=== PATIENT | male | born 1970 | race Caucasian/White ===

== ENCOUNTER 2023-05-16 13:25 | Inpatient (IN) | payer MEDICAID ==
[~2023-05-16] VITALS: Ht 170.2 cm; Wt 72.6 kg
[2023-05-16] MEDS: LEVOFLOXACIN 750 MG/D5W PREMIX 150 ML IV SCH (00:56)
[2023-05-16 13:33] VITALS: BP 190/130; PULSE 113; RESP 20; TEMP 97.7; O2SAT 98
[2023-05-16 15:09] LABS: BASOPHILS % (AUTO) 1.1 % (0.0-2.0); EOSINOPHILS # (AUTO) 0.4 K/uL (0-0.4); EOSINOPHILS % (AUTO) 8.3 % (0.0-4.0); HEMATOCRIT 47.7 % (36-52); HEMOGLOBIN 16.4 g/dL (12.0-18.0); LYMPHOCYTES # (AUTO) 1.4 K/uL (2.0-11.5); LYMPHOCYTES % (AUTO) 33.3 % (20.5-51.1); MEAN CORPUSCULAR HEMOGLOBIN 33 pg (27-31); MEAN CORPUSCULAR HGB CONC 35 g/dL (33-37); MEAN CORPUSCULAR VOLUME 95.2 fL (80-94); MONOCYTES # (AUTO) 0.3 K/uL (0.8-1.0); MONOCYTES % (AUTO) 7.8 % (1.7-9.3); NEUTROPHILS # (AUTO) 2.1 K/uL (1.8-7.7); NEUTROPHILS % (AUTO) 49.5 % (42.2-75.2); PLATELET COUNT (AUTO) 60 K/uL (140-450); RED BLOOD CELL COUNT(AUTO) 5.01 MIL/uL (4.20-6.10); RED CELL DISTRIBUTION WIDTH 14.4 % (11.6-13.7); WHITE BLOOD COUNT (AUTO) 4.3 K/uL (4.8-10.8)
[2023-05-16 15:17] LABS: ANION GAP 12.4 (8-16); CALCIUM 8.2 mg/dL (8.5-10.1); CARBON DIOXIDE 30.7 mmol/L (21-32); CREATININE 0.8 mg/dL (0.6-1.3); POTASSIUM 4.1 mmol/L (3.5-5.1)
[2023-05-16] MEDS: HYDROmorphone PFS 2 MG/ML SYR IVP ONE ×2 (15:19→18:14)
[2023-05-16 15:20] LABS: INR 1.06 (0.8-1.2); PARTIAL THROMBOPLASTIN TIME 24.1 secs (22-35.6); PROTHROMBIN TIME 11.1 secs (10.8-13.4)
[2023-05-16] MEDS: NACL 0.9% 1,000 ML IV SCH ×2 (15:21→22:00)
[2023-05-16 15:27] LABS: ALANINE AMINOTRANSFERASE 85 U/L (12-78); ALBUMIN 3.4 g/dL (3.4-5.0); ALKALINE PHOSPHATASE 193 U/L (50-136); ASPARTATE AMINOTRANSFERASE 143 U/L (15-37); BILIRUBIN,DIRECT 0.2 mg/dL (0.0-0.3); CREATINE KINASE, TOTAL 119 U/L (39-308); TOTAL BILIRUBIN 0.7 mg/dL (0.0-1.0); TOTAL PROTEIN, SERUM 7.1 g/dL (6.4-8.2)
[2023-05-16 15:30] LABS: LACTIC ACID 2.6 mmol/L (0.4-2.0)
[2023-05-16 16:07] LABS: APPEARANCE,URINE CLEAR (CLEAR); BILIRUBIN,URINE NEGATIVE (NEGATIVE); BLOOD, URINE NEGATIVE (NEGATIVE); COLOR,URINE YELLOW (YELLOW); LEUKOCYTE ESTERASE ,URINE NEGATIVE (NEGATIVE); NITRITE, URINE NEGATIVE (NEGATIVE); PROTEIN,URINE NEGATIVE (NEGATIVE); UGLUCOSE 1+ (NEGATIVE); UROBILINOGEN,URINE 0.2 EU/dL (0.2 - 1)
[2023-05-16] MEDS ORDERED: CRUSHER, PILL MC ONE (17:49)
[2023-05-16] MEDS: PROPRANOLOL 20 MG TAB PO ONE (17:50)
[2023-05-16] MEDS: NACL 0.9% 1,000 ML IV ONE (18:22)
[2023-05-16] MEDS ORDERED: metroNIDAZOLE 500 MG/NS PREMIX 100 ML IV ONE (19:45)
[2023-05-16] MEDS ORDERED: ACETAMINOPHEN 325 MG TAB PO PRN (20:05)
[2023-05-16] MEDS ORDERED: HYDROcodone/APAP 5/325 MG 1 TAB TAB PO PRN (20:05)
[2023-05-16] MEDS ORDERED: metroNIDAZOLE 500 MG/NS PREMIX 0 ML IV ONE (22:17)
[2023-05-16] MEDS ORDERED: cefTRIAXone 1,000 MG VIAL ONE (22:17)
[2023-05-16] MEDS: HYDROmorphone 1 MG/ML AMP IVP PRN (22:57)
[2023-05-17] VITALS (8 sets, daily range): BP systolic 121–173; BP diastolic 70–106; PULSE 74–120; RESP 18; TEMP 96.8–99; O2SAT 95–100
[2023-05-17] MEDS: PROPRANOLOL 20 MG TAB PO SCH (02:08)
[2023-05-17] MEDS: ONDANSETRON 4 MG/2 ML VIAL IVP PRN ×2 (03:10→12:30)
[2023-05-17] MEDS: hydrALAZINE 20 MG/ML VIAL IVP PRN (03:23)
[2023-05-17 06:53] LABS: BASOPHILS % (AUTO) 0.5 % (0.0-2.0); EOSINOPHILS # (AUTO) 0.1 K/uL (0-0.4); EOSINOPHILS % (AUTO) 1.1 % (0.0-4.0); HEMOGLOBIN 15.5 g/dL (12.0-18.0); LYMPHOCYTES # (AUTO) 0.5 K/uL (2.0-11.5); MEAN CORPUSCULAR HEMOGLOBIN 33 pg (27-31); MEAN CORPUSCULAR HGB CONC 35 g/dL (33-37); MEAN CORPUSCULAR VOLUME 95.4 fL (80-94); MONOCYTES # (AUTO) 0.3 K/uL (0.8-1.0); MONOCYTES % (AUTO) 4.3 % (1.7-9.3); NEUTROPHILS # (AUTO) 6.9 K/uL (1.8-7.7); NEUTROPHILS % (AUTO) 88.1 % (42.2-75.2); PLATELET COUNT (AUTO) 70 K/uL (140-450); RED BLOOD CELL COUNT(AUTO) 4.72 MIL/uL (4.20-6.10); RED CELL DISTRIBUTION WIDTH 14.5 % (11.6-13.7); WHITE BLOOD COUNT (AUTO) 7.8 K/uL (4.8-10.8)
[2023-05-17 07:32] LABS: ALBUMIN 3.2 g/dL (3.4-5.0); ANION GAP 15.8 (8-16); CALCIUM 8.1 mg/dL (8.5-10.1); CARBON DIOXIDE 25.4 mmol/L (21-32); CREATININE 0.6 mg/dL (0.6-1.3); POTASSIUM 4.2 mmol/L (3.5-5.1); TOTAL PROTEIN, SERUM 6.7 g/dL (6.4-8.2)
[2023-05-17] MEDS: DEXT 5% /NACL 0.9% 1,000 ML IV SCH (08:52)
[2023-05-17] MEDS: LORazepam 1 MG TAB PO PRN (08:52)
[2023-05-17] MEDS: PANTOPRAZOLE 40 MG INJ VIAL IVP ONE (08:52)
[2023-05-17] MEDS: DOCUSATE SODIUM 100 MG GELCAP PO SCH (09:00)
[2023-05-17] MEDS: LORazepam 2 MG/ML VIAL IVP PRN (10:05)
[2023-05-17] MEDS: diphenhydrAMINE 50 MG/ML VIAL ONE (11:47)
[2023-05-17] MEDS: fentaNYL citrate 0.05 MG/ML VIAL ONE (11:48)
[2023-05-17] MEDS: MIDAZOLAM 5 MG/5 ML VIAL ONE (11:48)
[2023-05-17] MEDS: fentaNYL citrate 0.05 MG/ML VIAL IVP ONE (12:26)
[2023-05-17] MEDS: MIDAZOLAM 2 MG/2 ML VIAL IV ONE (12:26)
[2023-05-17] MEDS: ZOLPIDEM 5 MG TAB PO PRN (22:53)
[2023-05-18] VITALS: BP 188/120; PULSE 100; RESP 18; TEMP 99; O2SAT 95
[2023-05-18 06:47] LABS: BASOPHILS % (AUTO) 0.1 % (0.0-2.0); EOSINOPHILS % (AUTO) 0.7 % (0.0-4.0); HEMOGLOBIN 15.1 g/dL (12.0-18.0); LYMPHOCYTES # (AUTO) 0.6 K/uL (2.0-11.5); LYMPHOCYTES % (AUTO) 14.4 % (20.5-51.1); MEAN CORPUSCULAR HEMOGLOBIN 33 pg (27-31); MEAN CORPUSCULAR HGB CONC 34 g/dL (33-37); MEAN CORPUSCULAR VOLUME 97.5 fL (80-94); MONOCYTES # (AUTO) 0.4 K/uL (0.8-1.0); MONOCYTES % (AUTO) 10.2 % (1.7-9.3); NEUTROPHILS # (AUTO) 3.2 K/uL (1.8-7.7); NEUTROPHILS % (AUTO) 74.6 % (42.2-75.2); PLATELET COUNT (AUTO) 37 K/uL (140-450); RED BLOOD CELL COUNT(AUTO) 4.62 MIL/uL (4.20-6.10); RED CELL DISTRIBUTION WIDTH 14.5 % (11.6-13.7); WHITE BLOOD COUNT (AUTO) 4.3 K/uL (4.8-10.8)
[2023-05-18 07:19] LABS: ANION GAP 9.2 (8-16); CALCIUM 8.4 mg/dL (8.5-10.1); CARBON DIOXIDE 31.4 mmol/L (21-32); CREATININE 0.9 mg/dL (0.6-1.3); POTASSIUM 3.6 mmol/L (3.5-5.1); TOTAL BILIRUBIN 1.1 mg/dL (0.0-1.0); TOTAL PROTEIN, SERUM 6.3 g/dL (6.4-8.2)
[2023-05-18] MEDS ORDERED: POLYVINYL ALCOHOL 1.4% OP 15 ML SOL OP PRN (07:45)
[2023-05-18 08:00] VITALS: BP 114/69; PULSE 84; RESP 18; TEMP 98.2; O2SAT 97
[2023-05-18] MEDS ORDERED: [UNRECOGNIZED DRUG - OTHER] OP PRN (08:40)
[2023-05-18 16:00] VITALS: BP 140/72; PULSE 98; RESP 18; TEMP 98.1; O2SAT 95
[2023-05-18 20:00] VITALS: PULSE 89; RESP 18; TEMP 98.2; O2SAT 98
[2023-05-19] VITALS: BP 141/76; PULSE 119; RESP 18; TEMP 99.4; O2SAT 98
[2023-05-19 07:04] LABS: BASOPHILS % (AUTO) 0.2 % (0.0-2.0); EOSINOPHILS % (AUTO) 0.6 % (0.0-4.0); HEMATOCRIT 43.4 % (36-52); HEMOGLOBIN 15.1 g/dL (12.0-18.0); LYMPHOCYTES # (AUTO) 0.5 K/uL (2.0-11.5); LYMPHOCYTES % (AUTO) 14.3 % (20.5-51.1); MEAN CORPUSCULAR HEMOGLOBIN 33 pg (27-31); MEAN CORPUSCULAR HGB CONC 35 g/dL (33-37); MEAN CORPUSCULAR VOLUME 96.1 fL (80-94); MONOCYTES # (AUTO) 0.4 K/uL (0.8-1.0); NEUTROPHILS # (AUTO) 2.6 K/uL (1.8-7.7); NEUTROPHILS % (AUTO) 72.9 % (42.2-75.2); PLATELET COUNT (AUTO) 39 K/uL (140-450); RED BLOOD CELL COUNT(AUTO) 4.52 MIL/uL (4.20-6.10); RED CELL DISTRIBUTION WIDTH 14.3 % (11.6-13.7); WHITE BLOOD COUNT (AUTO) 3.5 K/uL (4.8-10.8)
[2023-05-19 07:17] LABS: ALBUMIN 3.4 g/dL (3.4-5.0); ANION GAP 10.6 (8-16); CALCIUM 8.9 mg/dL (8.5-10.1); CARBON DIOXIDE 32.3 mmol/L (21-32); CREATININE 0.9 mg/dL (0.6-1.3); TOTAL BILIRUBIN 1.3 mg/dL (0.0-1.0); TOTAL PROTEIN, SERUM 6.9 g/dL (6.4-8.2)
[2023-05-19 07:36] LABS: POTASSIUM 2.9 mmol/L (3.5-5.1)
[2023-05-19 08:00] VITALS: BP 130/79; PULSE 64; RESP 18; TEMP 98.2; O2SAT 99
[2023-05-19] MEDS ORDERED: POTASSIUM CHLORIDE 60 MEQ, LIDOCAINE 1% 25 MG in NACL 0.9% 500 ML IV SCH (08:30)
[2023-05-19] MEDS: POTASSIUM CHLORIDE 60 MEQ, LIDOCAINE 1% 25 MG in NACL 0.9% 500 ML IV SCH (09:27)
[2023-05-19 12:48] LABS: ANION GAP 10.8 (8-16); CALCIUM 8.7 mg/dL (8.5-10.1); CARBON DIOXIDE 30.1 mmol/L (21-32); CREATININE 0.8 mg/dL (0.6-1.3); POTASSIUM 3.9 mmol/L (3.5-5.1)
[2023-05-19 13:13] VITALS: BP 130/79; PULSE 64; RESP 18; TEMP 98.2
[2023-05-19 14:25] VITALS: O2SAT 94
== END 2023-05-19 15:40 | disposition home health service (06) | DRG 241 ==
LOC: MED 13:25 → MMU 20:08 → MTU 05-17 01:30
PROVIDERS: ADMIT Student in an Organized Health Care Education/Training Program; ATTEND Student in an Organized Health Care Education/Training Program
PROC: 0DJ08ZZ Inspection of Upper Intestinal Tract, Via Natural or Artificial Opening Endoscopic (ICD-10-PCS; principal; 2023-05-17 12:00)
DX: K29.00 Acute gastritis without bleeding (principal); J96.01 Acute respiratory failure with hypoxia; K85.90 Acute pancreatitis without necrosis or infection, unspecified; E87.20 Acidosis, unspecified; D69.6 Thrombocytopenia, unspecified; Z79.899 Other long term (current) drug therapy; Z85.89 Personal history of malignant neoplasm of other organs and systems; R33.9 Retention of urine, unspecified
CPT/HCPCS: 36415; 71045; 74250; 80048; 80053; 80076; 81003; 82550; 83605; 83690; 84484; 85025; 85610; 85730; 87040; 87081; 93005; 96361; 96365; 96375; 96376; 97116; 97163-GP; 99291; C9113; J0360; J0696; J1170; J1200; J1644; J1956; J2001; J2060; J2250; J2405; J3010; J3480; J3490; J7030; Q9967